=== PATIENT | female | born 1970 | race African-American/Black ===

== ENCOUNTER 2017-03-20 01:24 | Emergency (ER) | payer MEDICAID ==
[~2017-03-20] VITALS: Ht 170.2 cm; Wt 154.5 kg
[2017-03-20 03:32] LABS: BASOPHILS % 1.4 % (0.0-2.0); EOSINOPHILS % 2.1 % (0.0-5.0); HEMATOCRIT. 41.2 % (36.0-48.0); HEMOGLOBIN. 13.8 g/dL (12.0-16.0); LYMPHOCYTES % 29.2 % (20.0-50.0); MEAN CORPUSCULAR HEMOGLOBIN 28.7 pg (28.0-32.0); MEAN CORPUSCULAR HGB CONC 33.4 g/dL (31.0-37.0); MEAN PLATELET VOLUME 9.5 fl (7.4-10.4); MONOCYTES % 7.6 % (2.0-8.0); NEUTROPHILS % 59.7 % (40.0-76.0); PLATELET 201 x1000/uL (130-400); RED CELL DISTRIBUTION WIDTH 14.3 % (11.6-14.6); WHITE BLOOD COUNT 7.4 x1000/uL (4.5-11.0)
[2017-03-20 03:45] LABS: HCG SCREEN NEGATIVE
[2017-03-20 03:47] LABS: ACETAMINOPHEN < 2 ug/mL (10-30); ALANINE AMINOTRANSFERASE 39 IU/L (13-61); ALBUMIN 3.6 g/dL (3.4-5.0); ANION GAP 9; CALCIUM 8.7 mg/dL (8.5-10.1); CARBON DIOXIDE 30 mEq/L (21-32); CHLORIDE 106 mEq/L (98-107); ETHANOL BLOOD < 10 mg/dL; INDEX HEMOLYSI 1 (1-3); INDEX ICTERIC 1 (1-4); INDEX LIPEMIC 1 (1-3); UREA NITROGEN BLOOD 6 mg/dL (7-21); eGFR > 60 mL/min (>60)
[2017-03-20] MEDS ORDERED: HYDROCODONE/ACETAMINOPHEN 5/325MG TABLET PO ONE (04:00)
[2017-03-20 04:31] LABS: *BARBITURATES SCREEN URINE NEGATIVE (NEGATIVE); *COCAINE SCREEN URINE NEGATIVE (NEGATIVE); CANNABINOID URINE SCREEN NEGATIVE (NEGATIVE); ECSTASY MDMA SCREEN URINE NEGATIVE (NEGATIVE); METHADONE URINE SCREEN NEGATIVE (NEGATIVE); PHENCYCLIDINE URINE SCREEN NEGATIVE (NEGATIVE)
[2017-03-20 05:27] LABS: *AMPHETAMINES SCREEN URINE PRESUMTIVE POSITIVE (NEGATIVE); *BENZODIAZEPINES SCREEN URINE PRESUMTIVE POSITIVE (NEGATIVE); OPIATES URINE SCREEN PRESUMTIVE POSITIVE (NEGATIVE)
[2017-03-20 08:15] VITALS: BP 124/74
[2017-03-20] MEDS ORDERED: ACETAMINOPHEN 325MG TABLET PO ONE (09:00)
== END 2017-03-20 12:56 | disposition home or self-care (01) ==
LOC: ER 01:28
DX: F32.9 Major depressive disorder, single episode, unspecified (principal); R45.851 Suicidal ideations; M32.9 Systemic lupus erythematosus, unspecified; I10 Essential (primary) hypertension; F41.9 Anxiety disorder, unspecified; Z90.710 Acquired absence of both cervix and uterus; Z98.890 Other specified postprocedural states
CPT/HCPCS: 36415; 71010; 80053; 80305; 80307; 80329; 84703; 85025; 93005; 99285; G0482

== ENCOUNTER 2017-06-06 16:52 | Emergency (ER) | payer MEDICAID ==
[~2017-06-06] VITALS: Ht 170.2 cm; Wt 140.0 kg
[2017-06-06 17:16] VITALS: BP 132/90
== END 2017-06-06 21:30 | disposition left against medical advice (07) ==
LOC: ER 16:52
DX: Z53.21 Procedure and treatment not carried out due to patient leaving prior to being seen by health care provider (principal)

== ENCOUNTER 2017-08-07 16:06 | Emergency (ER) | payer MEDICAID ==
[~2017-08-07] VITALS: Ht 170.2 cm; Wt 141.0 kg
[2017-08-07 16:15] VITALS: BP 137/76
== END 2017-08-08 00:07 | disposition left against medical advice (07) ==
LOC: ER 16:06
DX: Z53.21 Procedure and treatment not carried out due to patient leaving prior to being seen by health care provider (principal)

== ENCOUNTER 2022-05-01 02:31 | Emergency (ER) | payer MEDICAID ==
[~2022-05-01] VITALS: Ht 167.6 cm; Wt 266.5 kg
[2022-05-01 02:38] VITALS: BP 116/76
[2022-05-01] MEDS ORDERED: LORAZEPAM 1MG TABLET PO ONE ×2 (03:30→06:00)
[2022-05-01 04:10] LABS: BASOPHILS % 0.4 % (0.0-2.0); EOSINOPHILS % 0.2 % (0.0-5.0); HEMATOCRIT. 42.5 % (36.0-48.0); HEMOGLOBIN. 14.4 g/dL (12.0-16.0); LYMPHOCYTES % 24.9 % (20.0-50.0); MEAN CORPUSCULAR HEMOGLOBIN 28.1 pg (28.0-32.0); MEAN CORPUSCULAR VOLUME 83.2 fL (81.0-99.0); MEAN PLATELET VOLUME 9.9 fl (7.4-10.4); MONOCYTES % 7.7 % (2.0-8.0); NEUTROPHILS % 66.8 % (40.0-76.0); PLATELET 268 x1000/uL (130-400); RED BLOOD CELL COUNT 5.11 mill/uL (4.2-5.4); RED CELL DISTRIBUTION WIDTH 14.9 % (11.6-14.6)
[2022-05-01 04:38] LABS: CHLORIDE 102 mEq/L (98-107)
== END 2022-05-01 07:44 | disposition home or self-care (01) ==
LOC: ER 02:31
DX: R07.89 Other chest pain (principal); F41.9 Anxiety disorder, unspecified; I10 Essential (primary) hypertension; Z86.73 Personal history of transient ischemic attack (TIA), and cerebral infarction without residual deficits
CPT/HCPCS: 36415; 71045; 80053; 82962; 84484; 85025; 93005; 99285